=== PATIENT | female | born 1925 | race Caucasian/White ===

== ENCOUNTER 2017-03-28 12:26 | Emergency (ER) | payer OTHER ==
[~2017-03-28] VITALS: Ht 165.1 cm; Wt 50.8 kg
[~2017-03-28 12:26] MED LIST: GLYBURIDE; LEVOXYL75 MCG PO; NEURONTIN300 MG PO; NEURONTIN800 MG PO
[2017-03-28] MEDS ORDERED: TOPROL XL25 MG (12:35)
[2017-03-28] MEDS ORDERED: METFORMIN HCL500 MG (12:35)
[2017-03-28] MEDS ORDERED: ISOSORBIDE MONO30 MG (12:35)
[2017-03-28] MEDS ORDERED: PROZAC20 MG (12:37)
[2017-03-28] MEDS ORDERED: LIPITOR20 MG (12:38)
[2017-03-28] MEDS ORDERED: ELIQUIS2.5 MG (12:38)
[2017-03-28] MEDS ORDERED: LEVOTHYROXINE25 MCG (12:38)
[2017-03-28] MEDS ORDERED: GLIMEPIRIDE4 MG (12:38)
== END 2017-03-28 18:01 | disposition home or self-care (01) ==
LOC: ER 12:26
DX: R51 Headache (principal)

== ENCOUNTER 2017-04-15 05:12 | Inpatient (IN) | payer OTHER ==
[~2017-04-15] VITALS: Ht 165.1 cm; Wt 55.3 kg
[~2017-04-15 05:12] MED LIST changes: +ELIQUIS2.5 MG; +GLIMEPIRIDE4 MG; +ISOSORBIDE MONO30 MG; +LEVOTHYROXINE25 MCG; +LIPITOR20 MG; +METFORMIN HCL500 MG; +PROZAC20 MG; +TOPROL XL25 MG
== END 2017-04-17 13:54 | disposition home or self-care (01) | DRG 812 ==
LOC: ER 05:12 → MEDI 19:45
PROC: 30233N1 Transfusion of Nonautologous Red Blood Cells into Peripheral Vein, Percutaneous Approach (ICD-10-PCS; 2017-04-16)
PROC: 4A12X4Z Monitoring of Cardiac Electrical Activity, External Approach (ICD-10-PCS; 2017-04-16)
PROC: 0DB68ZX Excision of Stomach, Via Natural or Artificial Opening Endoscopic, Diagnostic (ICD-10-PCS; principal; 2017-04-17)
DX: D64.89 Other specified anemias (principal); I48.0 Paroxysmal atrial fibrillation; Z79.01 Long term (current) use of anticoagulants; I25.10 Atherosclerotic heart disease of native coronary artery without angina pectoris; K57.30 Diverticulosis of large intestine without perforation or abscess without bleeding; E78.4 Other hyperlipidemia; E03.8 Other specified hypothyroidism; E11.9 Type 2 diabetes mellitus without complications; K29.60 Other gastritis without bleeding

== ENCOUNTER 2017-04-29 08:55 | Outpatient (CLI) | payer OTHER | END 2017-04-29 09:03 | disposition home or self-care (01) | LOC: TOM 08:55 | DX: K57.90 Diverticulosis of intestine, part unspecified, without perforation or abscess without bleeding (principal) ==